=== PATIENT | male | born 1960 | race African-American/Black ===

== ENCOUNTER 2017-03-08 08:43 | Emergency (ER) | payer MEDICAID ==
[~2017-03-08] VITALS: Ht 182.9 cm; Wt 99.8 kg
[~2017-03-08 08:43] MED LIST: CYCLOBENZAPRINE10 MG ORAL; NKM; NORCO 5-325 TA1 EACH ORAL
[2017-03-08] MEDS ORDERED: Ketorolac 60mg Inj IM ONE (09:15)
[2017-03-08 09:50] VITALS: BP 132/89
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
[2017-03-08] MEDS ORDERED: CYCLOBENZAPRINE10 MG ORAL (10:21)
[2017-03-08] MEDS ORDERED: TRAMADOL HCL50 MG ORAL (10:21)
[2017-03-08 10:39] VITALS: BP 132/89
== END 2017-03-08 10:40 | disposition home or self-care (01) ==
LOC: EMR 09:23
DX: M54.42 Lumbago with sciatica, left side (principal); I10 Essential (primary) hypertension
CPT/HCPCS: 99283

== ENCOUNTER 2017-08-20 13:04 | Emergency (ER) | payer MEDICAID ==
[~2017-08-20] VITALS: Ht 182.9 cm; Wt 99.8 kg
[~2017-08-20 13:04] MED LIST changes: +TRAMADOL HCL50 MG ORAL
[2017-08-20 13:18] VITALS: BP 134/91
--- NOTE | 2017-08-20 13:27 | Emergency Room Report ---
History of Present Illness General Chief Complaint: Skin Rash/Abscess Source: Patient, Medical Record Present Illness HPI 56 yo male patient presents to ER complaining of sore on tongue following bitting tongue 3 weeks ago. Reports previously seen by primary care provider 2 weeks ago for treatment; was not given abx at that time. Reports tested for STI and reports were negative. Reports pain with movement and talking. Reports was given referral for ENT but has not been processed at this time. Denies fever, chest pain, SOB, rash, nausea, vomiting, sore throat. Reports white patch at tip of tongue. Reports plaque washes away when he drinks fluids. Denies itching, burning. Denies swelling of tongue. Reports hx of smoking cigarettes. Allergies: Coded Allergies: No Known Allergies (Unverified , 12/03/13) Patient History Past Medical History: see triage record Reviewed Nursing Documentation: PMH: Agreed; PSxH: Agreed Nursing Documentation-PMH Hx Hypertension: Yes Review of Systems All Other Systems: negative except mentioned in HPI Physical Exam Vital Signs Date Time Temp Pulse Resp B/P (MAP) Pulse Ox O2 Delivery O2 Flow Rate FiO2 08/20/17 13:18 98.5 87 18 134/91 99 Room Air 98.4 Sp02 EP Interpretation: reviewed, normal General Appearance: well appearing, no apparent distress, alert, GCS 15, non- toxic Head: normocephalic, atraumatic Eyes: bilateral eye normal inspection, bilateral eye PERRL ENT: hearing grossly normal, normal pharynx, no angioedema, normal voice, TMs + canals normal, uvula midline, other - 1-2cm sore on bottom of anterior tongue , white, unable to scrape off, no surrounding erythema, TTP, no stomatitis Neck: full range of motion Respiratory: lungs clear, normal breath sounds, no rhonchi, no respiratory distress, no accessory muscle use, no wheezing, speaking full sentences Cardiovascular #1: regular rate, rhythm, no edema Musculoskeletal: back normal, digits/nails normal, gait/station normal, normal range of motion, non-tender Neurologic: alert, oriented x3, responsive, motor strength/tone normal, sensory intact Skin: no rash Lymphatic: no adenopathy Medical Decision Making PA Attestation Dr. Diaz is my supervising Physician whom patient management has been discussed with. Diagnostic Impression: Primary Impression: Tongue sore ER Course Pt. presents to the ED c/o bite jake on tongue. Ddx considered but are not limited to atopic dermatitis, gingivostomatitis, pharyngitis, candidiasis, leukoplakia. Vital signs: are WNL, pt. is afebrile ORDERS: None required at this time, the diagnosis is clinical. No unroofed vesicles. ER COURSE: PE cut consistent with hx of bite jake. Unable to scrape off in ER. Unlikely fungal. Informed patient of malignancy associated with plaque that is unable to be scraped off. Due to patient reporting able to remove white coating at home previously without bleeding, low suspicion for leukoplakia, lesions consisted with history of bite jake. Will provide abx for treatment for possible bacterial infection associated with lesion. Instructed patient to followup with primary care provider regarding referral and report to ENT for further diagnosis and testing. Don't smoke. Salt water gargles. Patient seen and evaluated by Dr. Diaz, agrees with treatment and plan. DISCHARGE: -Rx given for Augmentin At this time pt. is stable for d/c to home. Patient is resting comfortably in no acute distress, nontoxic appearing, talking without difficulty, laughing. Will provide printed patient care instructions, and any necessary prescriptions. Patient instructed to follow with primary care provider in 3-5 days for further treatment and referral as needed. Informed patient breakouts may occur during periods of stress or illness. Discuss future treatment options to prevent breakouts with patient; informed patient to discuss with primary care provider. Care plan and follow up instructions have been discussed with the patient prior to discharge. Patient reports understanding and agreement to treatment plan. Patient questions asked and answered. ER precautions given, patient instructed to return to ER immediately for any new or worsening of symptoms. Last Vital Signs Date Time Temp Pulse Resp B/P (MAP) Pulse Ox O2 Delivery O2 Flow Rate FiO2 08/20/17 13:18 98.5 87 18 134/91 99 Room Air 98.4 Disposition: HOME, SELF-CARE Condition: Stable Scripts Amoxicillin/Potassium Clav 875-125* (AUGMENTIN 875-125 TABLET*) 1 Each Tablet 1 TAB ORAL TWICE A DAY for 7 Days, #14 TAB Prov: Azael Munguia 08/20/17 Patient Instructions: Stomatitis, [id number], Tongue Laceration, [id number] Additional Instructions: Followup with primary care provider in 3 -5 days. Followup with ENT for further diagnosis and treatment. Take medications as directed. Patient questions asked and answered. ER precautions given, patient instructed to return to ER immediately for any new or worsening of symptoms. Azael Munguia Aug 20, 2017 13:26
[2017-08-20] MEDS ORDERED: LD2JL30 TOPIC (14:06)
[2017-08-20] MEDS ORDERED: AUGMENTIN 875-1 EAC1 ORAL (14:18)
[2017-08-20 14:26] VITALS: BP 139/87
== END 2017-08-20 14:29 | disposition home or self-care (01) ==
LOC: EMR 13:27
DX: K13.79 Other lesions of oral mucosa (principal); I10 Essential (primary) hypertension
CPT/HCPCS: 99284